=== PATIENT | female | born 1985 | race Caucasian/White ===

== ENCOUNTER 2016-11-30 05:48 | Inpatient (IN) | payer BC ==
[~2016-11-30] VITALS: Ht 175.3 cm; Wt 78.5 kg
[2016-11-30] VITALS (10 sets, daily range): BP systolic 110–162; BP diastolic 64–90
[~2016-11-30 05:48] MED LIST: ENDOCET 5-3251 EACH PO; IBUPROFEN800 MG PO
[2016-11-30] MEDS ORDERED: IBUPROFEN800 MG PO (07:33)
[2016-12-01 06:19] LABS: EOSINOPHIL (%) 0.3 % (0-5); HEMATOCRIT 31.8 % (36.0-46.0); IMMATURE GRANULOCYTE (%) 0.4 % (0.0-0.7); INSTRUMENT ABS NEUTROPHIL CT 7.4 K/uL; LYMPHOCYTE COUNT 2.7 K/uL (1.0-2.8); MCH 28.9 PG (29.0-34.0); MCHC 32.4 G/DL (30.0-36.0); MCV 89.3 FL (83-99); MEAN PLAT.VOLUME 11.7 uM^3 (9.5-12.4); MONOCYTE (%) 4.9 % (3-12); MONOCYTE COUNT 0.5 K/uL (0-0.8); NEUTROPHIL (%) 69.1 % (45-76); NEUTROPHIL COUNT 7.4 K/uL (1.8-6.4); PLATELET COUNT 169 K/uL (156-360); RBC DIS.WIDTH-CV 15.4 % (11.8-14.6); RBC DIS.WIDTH-SD 50.4 % (39-53); RED BLOOD COUNT 3.56 M/uL (3.80-5.20); WHITE BLOOD COUNT 10.7 K/uL (4.1-10.2)
[2016-12-01 08:36] VITALS: BP 105/68
[2016-12-01] MEDS ORDERED: PRENATAL 19 TA1 EACH PO (11:01)
[2016-12-01 15:25] VITALS: BP 108/70
== END 2016-12-01 17:00 | disposition home or self-care (01) | DRG 775 ==
LOC: LDRP-OP 05:48 → 2WEST 05:49 → LDRP-OP 01-04 11:05
PROVIDERS: Nurse Practitioner
DX: O62.3 Precipitate labor (principal); O70.1 Second degree perineal laceration during delivery; Z3A.39 39 weeks gestation of pregnancy; Z37.0 Single live birth
CPT/HCPCS: 85025; J2590